=== PATIENT | female | born 1980 | race Caucasian/White ===

== ENCOUNTER 2017-05-15 16:40 | Emergency (ER) | payer OTHER ==
[2017-05-15 17:03] VITALS: BP 130/84
[2017-05-15] MEDS ORDERED: Ibuprofen TAB* 400 MG PO ONE (17:41)
--- NOTE | 2017-05-15 17:46 | UC ---
Lower Extremity/Ankle HPI - HPI Summary HPI Summary: 37 y/o female presents to the urgent care c/o twisting her LF ankle 1300pm while playing with her son. Pt placed ice after it happened, But has not taking anything to alleviate pain. Pain now is 6/10 at rest and 8/10 with movement. Pt reports she was able to ambulate with difficulty due to pain. Pt denies numbness, fever, SOB, chest pain, N/V/D. Pt has not other complains. - History of Current Complaint Chief Complaint: UCLowerExtremity Stated Complaint: ANKLE INJURY Time Seen by Provider: 05/15/17 17:27 Hx Obtained From: Patient Hx Last Menstrual Period: 05/01/17 ?: No Onset/Duration: Sudden Onset, Lasting Hours, Still Present Severity Initially: Moderate Severity Currently: Moderate Pain Intensity: 8 - w/ movement Pain Scale Used: 0-10 Numeric Aggravating Factor(s): Ambulation Alleviating Factor(s): Rest Able to Bear Weight: Yes - Risk Factors Gout Risk Factors: Negative DVT Risk Factors: Negative Septic Arthritis Risk Factor: Negative - Allergies/Home Medications Allergies/Adverse Reactions: Allergies Allergy/AdvReac Type Severity Reaction Status Date / Time No Known Allergies Allergy Verified 07/28/15 03:20 Home Medications: Home Medications metFORMIN* [Glucophage 500 MG TAB *] 500 mg PO BID 05/15/17 [History Confirmed 05/15/17] PMH/Surg Hx/FS Hx/Imm Hx Previously Healthy: Yes Other Endocrine History: Polycystic Ovarian syndrome - Surgical History Surgical History: Yes Surgery Procedure, Year, and Place: choley, - Family History Known Family History: Positive: Cardiac Disease, Hypertension - Social History Occupation: Employed Full-time Lives: With Family Alcohol Use: None Substance Use Type: None Smoking Status (MU): Never Smoked Tobacco - Immunization History Most Recent Influenza Vaccination: unknown Most Recent Tetanus Shot: 06/19/15 Most Recent Pneumonia Vaccination: unknown Review of Systems Constitutional: Negative Skin: Negative Eyes: Negative ENT: Negative Respiratory: Negative Cardiovascular: Negative Gastrointestinal: Negative Genitourinary: Negative Motor: Negative Neurovascular: Negative Musculoskeletal: Other: - LF knee pain s/p twisting ankle while playing Neurological: Negative Psychological: Negative All Other Systems Reviewed And Are Negative: Yes Physical Exam Triage Information Reviewed: Yes Appearance: Well-Appearing, No Pain Distress, Well-Nourished, Obese Vital Signs: Initial Vital Signs Temp 98.4 F 05/15/17 16:55 Pulse 94 05/15/17 16:55 Resp 18 05/15/17 16:55 BP 130/84 05/15/17 16:55 Pulse Ox 99 05/15/17 16:55 Vital Signs Reviewed: Yes Eye Exam: Normal Eyes: Positive: Conjunctiva Clear - PRRLA, EOMI, fundi grossly normal ENT Exam: Normal ENT: Positive: Normal ENT inspection, Hearing grossly normal, Pharynx normal, TMs normal Dental Exam: Normal Neck exam: Normal Neck: Positive: Supple, Nontender, No Lymphadenopathy Respiratory Exam: Normal Respiratory: Positive: Chest non-tender, Lungs clear, Normal breath sounds Cardiovascular Exam: Normal Cardiovascular: Positive: RRR, No Murmur, Pulses Normal, Brisk Capillary Refill Abdominal Exam: Normal Abdomen Description: Positive: Nontender, No Organomegaly, Soft. Negative: CVA Tenderness (R), CVA Tenderness (L) Bowel Sounds: Positive: Present Musculoskeletal: Positive: ROM Limited @ - LF ankle with mild swelling at he lateral malleolus, Decrease ROM due to pain. No erythema observed. Positve capillary refill, sensation, pulses intact. Pt able to ambulate limited by pain. Lower Extremity Course/Dx - Course Course Of Treatment: 37 y/o female presents to the urgent care c/o twisting her LF ankle 1300pm while playing with her son. Pt placed ice after it happened, But has not taking anything to alleviate pain. Pain now is 6/10 at rest and 8/ 10 with movement. Pt reports she was able to ambulate with difficulty due to pain. Pt denies numbness, fever, SOB, chest pain, N/V/D. Pt has not other complains. Hx obtained. PE abnormal findings:LF ankle with mild swelling at he lateral malleolus, Decrease ROM due to pain. No erythema observed. Positve capillary refill, sensation, pulses intact. Pt able to ambulate limited by pain. Left ankle X-ray 3 views ordered: results:No fracture noted. Pt's ankle immobilized with gel splin, monico bandage. Educated in how to use the crutches. Advised RICE, and f/u with Orthopedic Dr barnhart in 1 week if symptoms are not improving. Pt neurovascular intact. Pt understood and agreed. Left the clinic ambulating with the help ot crutches. - Differential Dx/Diagnosis Differential Diagnosis/HQI/PQRI: Dislocation, Fracture (Closed), Sprain, Strain , Tendonitis Provider Diagnoses: 1- Left ankle sprain Discharge - Discharge Plan Condition: Stable Disposition: HOME Prescriptions: Ibuprofen TAB* [Motrin TAB* 800 MG] 800 mg PO Q6H #30 tab Patient Education Materials: Ankle Sprain (ED), Crutch Instructions (ED) Referrals: Franklin Ramirez MD [Primary Care Provider] - 1 Week Manohar Barnhart MD [Medical Doctor] - 1 Week Additional Instructions: Please take Ibuprofen after meals to alleviate pain and swelling. Apply ice, Rest and elevate your LF leg. Do not put weight on your leg until symptoms resolve. F/u with your PCP or Orthopedic if symptoms do not improve or worsen.
--- NOTE | 2017-05-15 18:34 | RAD ---
Indication: Left ankle pain. 3 views of the left ankle demonstrates no fracture. Ankle mortise is intact. IMPRESSION: No fracture of left ankle is noted.
== END 2017-05-15 19:06 | disposition home or self-care (01) ==
LOC: UCEAST 16:40
DX: S93.402A Sprain of unspecified ligament of left ankle, initial encounter (principal); X50.0XXA Overexertion from strenuous movement or load, initial encounter; Y93.89 Activity, other specified; Y92.239 Unspecified place in hospital as the place of occurrence of the external cause; Y99.9 Unspecified external cause status
CPT/HCPCS: 84702; 99214; A9270-GY; G0463

== ENCOUNTER 2018-09-06 04:20 | Inpatient (IN) | payer OTHER ==
[2018-09-06] MEDS ORDERED: Lidocaine 1%* 5 ML VIAL ONE (04:44)
--- NOTE | 2018-09-06 05:33 | HP ---
General Information - Reason for Visit Spontaneous ruptured of membranes at 330 am along with contractions. 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 Past Medical History Comment: PCOS Hgb C trait Hypercholesterolemia Pertinent Past Surgical History: See Records Past Surgical History Comment: 2015 Section 2017 Laparoscopic cholecystectomy 2006 Lasik Pertinent Family History: See Records - Antepartal Records Antepartal Records: Reviewed, Complicated by: - Gestational diabetes A1 Review of Systems Constitutional: Uncomfortable CV Complaint: No Respiratory: Shortness of Breath: No Gastrointestinal: No Nausea/Vomiting, Normal Bowel Movement Genitourinary: Leaking Fluid, No Dysuria, No Bleeding Musculoskeletal: No Complaint, No Epigastric Pain Neurological: No Headache, No Visual Changes Movement: Normal Exam Allergies/Adverse Reactions: Allergies No Known Allergies Allergy (Verified 09/06/18 04:44) Temp 97.2 P90 RR 20 BP 149/85 POx 98 % RA Lab Values - Entire Visit: Laboratory Tests 09/06/18 04:50 Vag Amniotic Fld Detect Positive - Measurements Height: 5 ft 3 in Weight: 210 lb Weight in lbs: [phone] Body Mass Index (BMI): 37.2 Pre- Weight: 207 lb Weight Gained This : 3 lbs and 0 ozs - Exam Breast: Breast Exam Deferred CVA: No CVA Tenderness Extremities: No Edema Heart: Normal Rhythm/Heart Sounds HEENT: No Significant Findings Lungs: Clear Bilaterally Rectal: Rectal Exam Deferred Reflexes: DTR 2+ Thyroid: No Thyromegaly - Abdominal Exam Abdomen Exam: Non-Tender, Fundal Height Consistent with Dates - Ultrasound/Biophysical Profile Biophysical Profile: Normal Reactive NST Targeted Exam Findings See L&D Outpatient Visit Provider Note for Findings: N/A Cervical Exam: 5cm Effacement: 90% Station: 0 Presenting Part: Vertex Membrane Status: SROM Amniotic Fluid Evaluation: Positive ROM Plus Bleeding/Discharge: None EFM Findings - External Monitor Findings Baseline Heart Rate: 130 External Monitor Findings: Accelerations Present, No Pattern of Variable or Late Decelerations Contractions: Regular, Strong, 45-90 Seconds Contraction Frequency: q 2-3 mins Assessment/Plan - Assessment 38 y/o with at 38 6/7 weeks, SROM in labor. Prior section and desires . - Obstetrical Risk Factors Obstetrical Risk Factors: Gestational Diabetes, Previous C/Section in Labor - Plan Plan: IV Hydration, Admit - Anticipate Vaginal Delivery - Date/Time of Admission Date of Admission: 09/06/18 Time of Admission: 15:00
[2018-09-06 05:38] LABS: ABS Basophils 0.1 10^3/ul (0-0.2); ABS Eosinophils 0.1 10^3/ul (0-0.6); ABS Lymphocytes 2.9 10^3/ul (1.0-4.8); ABS Monocytes 0.7 10^3/ul (0-0.8); ABS Neutrophils 6.9 10^3/ul (1.5-7.7); ABS Nucleated RBC 0 10^3/ul; Hematocrit 45 % (35-47); Hemoglobin 16.1 g/dl (12.0-16.0); Lymphocyte % 27.3 % (25-47); Mean Corpuscular HGB Conc 35 g/dl (31-36); Mean Corpuscular Hemoglobin 30 pg (27-31); Mean Corpuscular Volume 84 fL (80-97); Mean Platelet Volume 9.8 fL (7.4-10.4); Nucleated Red Blood Cells % 0.3; Platelet Count 159 10^3/ul (150-450); Red Blood Count 5.43 10^6/ul (4.00-5.40); Red Cell Distribution Width 14 % (10.5-15); White Blood Count 10.8 10^3/ul (3.5-10.8)
[2018-09-06] MEDS ORDERED: OBEPIDURAL* 250 ML EPIDURAL ONE (05:51)
[2018-09-06] MEDS ORDERED: Famotidine TAB* 20 MG PO PRN (06:46)
[2018-09-06] MEDS ORDERED: Sodium Citrate/Citric Acid* 15 ML UDC PO PRN (06:46)
[2018-09-06] MEDS ORDERED: Phenylephrine IV* 40 MCG/ML 10 ML SYRINGE IV PUSH PRN (06:46)
[2018-09-06] MEDS ORDERED: OBEPIDURAL* 250 ML EPIDURAL SCH (07:00)
[2018-09-06] MEDS ORDERED: ceFOXitin 2 GM IVPREMIX* 2 GM/50 ML BAG ONE (11:32)
[2018-09-06] MEDS ORDERED: Chloroprocaine 3%* 20 ML VIAL ONE ×2 (12:45→14:01)
[2018-09-06] MEDS ORDERED: Dexamethasone IV* 4 MG/ML 1 ML (4 MG) ONE (12:49)
[2018-09-06] MEDS ORDERED: Ondansetron INJ* 2 MG/ML VIAL ONE (12:49)
[2018-09-06] MEDS ORDERED: OXYTOCIN* 10 UNITS/ML 1 ML VIAL ONE (12:49)
[2018-09-06] MEDS ORDERED: Morphine PF AMP (0.5MG/ML)* 5 MG/10 ML AMP ONE (13:30)
[2018-09-06] MEDS ORDERED: fentaNYL* 50 MCG/ML 2 ML VIAL (100 MCG VIAL) ONE (14:07)
[2018-09-06] MEDS ORDERED: Acetaminophen TAB* 325 MG PO PRN (14:49)
[2018-09-06] MEDS ORDERED: Witch Hazel PAD* JAR TOPICAL PRN (14:49)
[2018-09-06] MEDS ORDERED: Ibuprofen TAB* 600 MG PO PRN (14:49)
[2018-09-06] MEDS ORDERED: Acetaminophen IV 1GM/100ML * 1,000 MG/100 ML VIAL IVPB ONE (15:14)
[2018-09-06] MEDS ORDERED: DiMENhydriNATE IV* 50 MG/ML VIAL IV PUSH PRN ×2 (15:14→15:16)
[2018-09-06] MEDS ORDERED: oxyCODONE TAB* 5 MG TAB PO PRN ×2 (15:14→15:16)
[2018-09-06] MEDS ORDERED: Naloxone* 0.4 MG/ML 1 ML VIAL IV PRN ×2 (15:14→15:16)
[2018-09-06] MEDS ORDERED: Ondansetron INJ* 2 MG/ML VIAL IV PRN (15:16)
[2018-09-06] MEDS ORDERED: Nalbuphine* 10 MG/ML 1 ML VIAL IV PRN (15:16)
[2018-09-06] MEDS ORDERED: Ketorolac INJ* 30 MG/ML 1 ML VIAL ONE (15:21)
[2018-09-06] MEDS: fentaNYL* 50 MCG/ML 2 ML VIAL (100 MCG VIAL) IV PRN ×2 (15:41→15:53)
[2018-09-06] MEDS ORDERED: Acetaminophen TAB* 325 MG PO SCH (16:00)
[2018-09-06] MEDS ORDERED: Ketorolac INJ* 30 MG/ML 1 ML VIAL IV ONE (16:00)
[2018-09-06] MEDS: Simethicone TAB* 80 MG TAB.CHEW PO SCH ×2 (18:34→23:07)
[2018-09-06] MEDS: Docusate CAP* 100 MG PO SCH (23:07)
[2018-09-06] MEDS: Ketorolac INJ* 30 MG/ML 1 ML VIAL IV SCH (23:07)
[2018-09-07] MEDS: Acetaminophen TAB* 325 MG PO SCH ×2 (02:30→08:51)
[2018-09-07] MEDS: Ketorolac INJ* 30 MG/ML 1 ML VIAL IV SCH ×2 (04:35→10:34)
[2018-09-07 07:06] LABS: ABS Basophils 0.1 10^3/ul (0-0.2); ABS Eosinophils 0 10^3/ul (0-0.6); ABS Lymphocytes 2.7 10^3/ul (1.0-4.8); ABS Monocytes 1.2 10^3/ul (0-0.8); ABS Neutrophils 11.7 10^3/ul (1.5-7.7); ABS Nucleated RBC 0 10^3/ul; Eosinophil % 0.3 % (0-6); Hematocrit 36 % (35-47); Hemoglobin 12.8 g/dl (12.0-16.0); Lymphocyte % 17.2 % (25-47); Mean Corpuscular HGB Conc 35 g/dl (31-36); Mean Corpuscular Hemoglobin 29 pg (27-31); Mean Corpuscular Volume 83 fL (80-97); Mean Platelet Volume 9.3 fL (7.4-10.4); Nucleated Red Blood Cells % 0; Platelet Count 120 10^3/ul (150-450); Red Blood Count 4.39 10^6/ul (4.00-5.40); Red Cell Distribution Width 14 % (10.5-15); White Blood Count 15.8 10^3/ul (3.5-10.8)
[2018-09-07] MEDS: Simethicone TAB* 80 MG TAB.CHEW PO SCH ×4 (08:51→21:35)
[2018-09-07] MEDS: Docusate CAP* 100 MG PO SCH ×3 (08:51→21:35)
--- NOTE | 2018-09-07 08:52 | OP ---
DATE OF OPERATION: 09/06/18 - ROOM #117 DATE OF : 84 SURGEON: Dominik Nelson MD OPTICS TEST TECHNICIAN: Sobia Titus CNM ANESTHESIOLOGIST: Dr. Suero. ANESTHESIA: Epidural. PRE-OP DIAGNOSIS: 38 plus 6 weeks' gestation with history of previous section with arrest of dilation during trial of labor. POST-OP DIAGNOSES: 38 plus 6 weeks' gestation with history of previous section with arrest of dilation during trial of labor and extensive pelvic adhesive disease. OPERATIVE PROCEDURE: Repeat low transverse section and lysis of adhesions. INDICATIONS: This patient is a 38-year-old 2, para 1, who had a history of prior section for arrest of dilation at about 8 cm. The patient presented early this morning with rupture of membranes and active labor. She progressed well in labor to about 7 cm; however, at this point, she did not have any further dilation despite regular contractions. The patient desired to proceed with a section at that point. She was extensively counseled and consent was signed. ESTIMATED BLOOD LOSS: 800 cc. URINE OUTPUT: 500 cc. IV FLUIDS: 1500 cc lactated Ringer's. MATERIAL TO LAB: Cord blood. FINDINGS: Normal appearing uterus, fallopian tubes, and ovaries. There were extensive adhesions of the bladder anteriorly as well as the omentum to the anterior abdominal wall, which required extensive dissection. Delivery was productive of female weighing 6 pounds 12 ounces with Apgars of 9 and 9. Time of delivery was 1341. COMPLICATIONS: None. DESCRIPTION OF PROCEDURE: The risks, benefits, and alternatives were described to the patient, and informed consent was obtained. The patient was taken to the operating room with IV running, where epidural anesthesia was induced and found to be adequate. The patient was prepped and draped in normal sterile fashion in the dorsal supine position with a leftward tilt. A Pfannenstiel skin incision was made with a scalpel through the patient's previous incision. This was carried down to the underlying fascia using the scalpel. The fascia was scored in the midline, and the incision was extended using Reilly scissors. The fascia was dissected off the underlying rectus muscles using blunt and sharp dissection. The rectus muscles were in the midline using dissection with a Naila clamp. The peritoneum was then entered bluntly. A bladder blade was placed. A bladder flap was created sharply using Metzenbaum scissors. A low transverse uterine incision was then made with the scalpel. This was carried down to the amniotic membranes. The membranes were then ruptured, productive of clear fluid. The uterine incision was extended using blunt traction. The head was elevated to the level of the incision, and, with fundal pressure, the head delivered without difficulty. The shoulders then were also both delivered and the body followed. The had excellent tone and cried immediately on delivery. The cord was doubly clamped and cut. The infant was then handed to the awaiting skate maker. Cord blood was collected. The placenta was delivered with manual extraction. The uterus was then exteriorized and cleared of all clots and debris. The uterine incision was then reapproximated using 0 Polysorb in a running-locked fashion. A second layer of imbricating 0 Polysorb sutures was then also placed for good hemostasis. The posterior cul-de-sac was irrigated with saline. The uterus was then returned to the abdomen. The incision was reinspected and still noted to be hemostatic. The peritoneum was closed with 2-0 chromic in a running fashion. The fascia was closed with 0 Polysorb in a running fashion. The subcutaneous tissues were copiously irrigated and made hemostatic using the Bovie. The subcutaneous tissues were then reapproximated using 2-0 chromic in interrupted sutures. The skin was then closed with . A sterile bandage was then placed over the incision. The patient tolerated the procedure well. Sponge, lap, and needle counts were correct x2. [id number]/[facility] #: [id number] MTDD
[2018-09-07] MEDS: Ferrous Gluconate TAB* 324 MG TAB PO SCH ×2 (09:02→21:35)
[2018-09-07] MEDS: oxyCODONE/Acetamin 5/325 MG* TAB PO PRN ×3 (12:57→21:35)
[2018-09-07] MEDS: Ibuprofen TAB* 600 MG PO PRN ×2 (16:51→23:56)
[2018-09-08] MEDS: oxyCODONE/Acetamin 5/325 MG* TAB PO PRN ×4 (01:50→14:16)
[2018-09-08] MEDS: Ibuprofen TAB* 600 MG PO PRN ×2 (06:07→12:27)
[2018-09-08 08:27] VITALS: BP 125/63
[2018-09-08] MEDS: Docusate CAP* 100 MG PO SCH ×2 (08:52→14:16)
[2018-09-08] MEDS: Simethicone TAB* 80 MG TAB.CHEW PO SCH ×2 (08:54→12:26)
== END 2018-09-08 14:43 | disposition home or self-care (01) | DRG 788 ==
LOC: MCHOBOUT 04:20 → MCHOB 05:21
PROVIDERS: ADMIT Obstetrics & Gynecology; ATTEND Obstetrics & Gynecology
PROC: 0DNW0ZZ Release Peritoneum, Open Approach (ICD-10-PCS; 2018-09-06)
PROC: 4A1HX4Z Monitoring of Products of Conception, Cardiac Electrical Activity, External Approach (ICD-10-PCS; 2018-09-06)
PROC: 10D00Z1 Extraction of Products of Conception, Low, Open Approach (ICD-10-PCS; principal; 2018-09-06 12:55)
DX: O34.211 Maternal care for low transverse scar from previous cesarean delivery (principal); O99.284 Endocrine, nutritional and metabolic diseases complicating childbirth; E28.2 Polycystic ovarian syndrome; O24.429 Gestational diabetes mellitus in childbirth, unspecified control; D58.2 Other hemoglobinopathies; O99.02 Anemia complicating childbirth; O62.1 Secondary uterine inertia; N73.6 Female pelvic peritoneal adhesions (postinfective); O99.89 Other specified diseases and conditions complicating pregnancy, childbirth and the puerperium; Z3A.38 38 weeks gestation of pregnancy; Z37.0 Single live birth
CPT/HCPCS: 36415; 84112; 85025; 86850; 86900; 86901; A9270-GY; J0694; J1100; J1885; J2400; J2405; J2590; J3010

== ENCOUNTER 2019-09-03 21:05 | Emergency (ER) | payer OTHER, BC ==
[2019-09-03 21:32] VITALS: BP 139/87
[2019-09-03] MEDS ORDERED: Albuterol 2.5 MG/3 ML NEB.SOL* (0.083%) INH ONE (21:52)
[2019-09-03] MEDS ORDERED: Ipratropium 0.5MG/2.5ML NEB* 0.5 MG/2.5 ML NEB.SOLN INH ONE (21:52)
--- NOTE | 2019-09-03 21:57 | UC ---
Respiratory Complaint HPI - HPI Summary HPI Summary: 39 yo female with the onset of chest tightness/wheezing and cough about 9 AM no fever no URI symptoms non smoker no hx asthma/bronchitis or pneumonia - History of Current Complaint Chief Complaint: UCRespiratory Stated Complaint: SOB Time Seen by Provider: 09/03/19 21:44 Hx Obtained From: Patient Hx Last Menstrual Period: 05/01/17 Onset/Duration: Gradual Onset, Lasting Hours Timing: Constant Severity Initially: Mild Severity Currently: Moderate Pain Intensity: 7 Pain Scale Used: 0-10 Numeric Character: Cough: Nonproductive Aggravating Factors: Nothing Alleviating Factors: Nothing Associated Signs And Symptoms: Positive: Dyspnea, Wheezing - Allergies/Home Medications Allergies/Adverse Reactions: Allergies Allergy/AdvReac Type Severity Reaction Status Date / Time No Known Allergies Allergy Verified 09/03/19 21:32 Home Medications: Home Medications Calcium Carbonate [Tums] 200 mg PO PRN 09/03/19 [History] PMH/Surg Hx/FS Hx/Imm Hx Previously Healthy: Yes - Surgical History Surgical History: Yes Surgery Procedure, Year, and Place: choley, - Family History Known Family History: Positive: Cardiac Disease, Hypertension - Social History Alcohol Use: None Substance Use Type: None Smoking Status (MU): Never Smoked Tobacco - Immunization History Most Recent Influenza Vaccination: 07/2018 Most Recent Tetanus Shot: 06/19/15 Most Recent Pneumonia Vaccination: unknown Review of Systems All Other Systems Reviewed And Are Negative: Yes Constitutional: Positive: Negative Skin: Positive: Negative Eyes: Positive: Negative ENT: Positive: Negative Respiratory: Positive: Shortness Of Breath, Cough Cardiovascular: Positive: Chest Pain Gastrointestinal: Positive: Negative Genitourinary: Positive: Negative Motor: Positive: Negative Neurovascular: Positive: Negative Musculoskeletal: Positive: Negative Neurological: Positive: Negative Psychological: Positive: Negative Physical Exam Triage Information Reviewed: Yes Appearance: Well-Appearing, No Pain Distress, Well-Nourished Vital Signs: Initial Vital Signs Temp 98.0 F 09/03/19 21:29 Pulse 99 09/03/19 21:29 Resp 18 09/03/19 21:29 BP 139/87 09/03/19 21:29 Pulse Ox 98 09/03/19 21:29 Vital Signs Reviewed: Yes Eyes: Positive: Conjunctiva Clear ENT: Positive: Hearing grossly normal, Uvula midline. Negative: Nasal congestion, Nasal drainage, Tonsillar swelling, Tonsillar exudate, Hoarse voice Dental Exam: Normal Neck: Positive: Supple, Nontender, No Lymphadenopathy Respiratory: Positive: No respiratory distress, No accessory muscle use, Wheezing - with forced expiration, Other: - bronchospastic cough Cardiovascular: Positive: RRR Musculoskeletal: Positive: ROM Intact, No Edema Neurological: Positive: Alert Psychological Exam: Normal Skin Exam: Normal Diagnostics - Radiology No standard instances Radiology Interpretation Completed By: ED Physician Summary of Radiographic Findings: NAD Re-Evaluation - Re-Evaluation First Eval Re-Evaluation Time: 22:35 Change: Improved - better air movement Respiratory Course/Dx - Differential Dx/Diagnosis Provider Diagnosis: Acute bronchospasm Discharge ED - Sign-Out/Discharge Documenting (check all that apply): Patient Departure All imaging exams completed and their final reports reviewed: No Studies - Discharge Plan Condition: Stable Disposition: HOME Prescriptions: predniSONE TAB* [Deltasone 20 MG TAB*] 40 mg PO DAILY #8 tab Patient Education Materials: Bronchospasm (ED), How to Use a Metered-Dose Inhaler and a Spacer (ED) Referrals: Franklin Ramirez MD [Primary Care Provider] - 4 Days - Billing Disposition and Condition Condition: STABLE Disposition: Home
[2019-09-03] MEDS ORDERED: Albuterol HFA INHALER* 8 gm MDI INH ONE (22:35)
[2019-09-03] MEDS ORDERED: predniSONE TAB* 20 MG PO ONE (22:35)
== END 2019-09-03 22:45 | disposition home or self-care (01) ==
LOC: UCEAST 21:05
DX: J98.01 Acute bronchospasm (principal)
CPT/HCPCS: 71046; 99213; A9270-GY; G0463; J7512

== ENCOUNTER 2019-09-20 09:17 | Emergency (ER) | payer BC, OTHER ==
[2019-09-20 09:26] VITALS: BP 127/81
--- NOTE | 2019-09-20 10:16 | UC ---
Throat Pain/Nasal Ady HPI - HPI Summary HPI Summary: Patient is a 39-year-old female with a 2 day history of sore throat and mild fever. She has swollen glands. She denies any severe headache or vomiting. She denies any chest pain or shortness of breath. - History of Current Complaint Chief Complaint: UCGeneralIllness Stated Complaint: SORE THROAT EAR PAIN Hx Obtained From: Patient Hx Last Menstrual Period: 05/01/17 Onset/Duration: Gradual Onset, Lasting Days Severity: Severe Pain Intensity: 9 Pain Scale Used: 0-10 Numeric Cough: None Associated Signs & Symptoms: Positive: Fever - Epiglottits Risk Factors Epiglottis Risk Factors: Negative - Allergies/Home Medications Allergies/Adverse Reactions: Allergies Allergy/AdvReac Type Severity Reaction Status Date / Time No Known Allergies Allergy Verified 09/20/19 09:26 PMH/Surg Hx/FS Hx/Imm Hx Previously Healthy: Yes - Surgical History Surgical History: Yes Surgery Procedure, Year, and Place: choley, - Family History Known Family History: Positive: Cardiac Disease, Hypertension - Social History Alcohol Use: None Substance Use Type: None Smoking Status (MU): Never Smoked Tobacco - Immunization History Most Recent Influenza Vaccination: 07/2018 Most Recent Tetanus Shot: 06/19/15 Most Recent Pneumonia Vaccination: unknown Review of Systems All Other Systems Reviewed And Are Negative: Yes Constitutional: Positive: Fever Skin: Positive: Negative Eyes: Positive: Negative ENT: Positive: Sore Throat Respiratory: Positive: Negative Cardiovascular: Positive: Negative Gastrointestinal: Positive: Negative Genitourinary: Positive: Negative Motor: Positive: Negative Neurovascular: Positive: Negative Musculoskeletal: Positive: Negative Neurological: Positive: Negative Psychological: Positive: Negative Physical Exam Triage Information Reviewed: Yes Appearance: Well-Appearing, No Pain Distress, Well-Nourished Vital Signs: Initial Vital Signs Temp 98.4 F 09/20/19 09:24 Pulse 102 09/20/19 09:24 Resp 22 09/20/19 09:24 BP 127/81 09/20/19 09:24 Pulse Ox 100 09/20/19 09:24 Vital Signs Reviewed: Yes Eyes: Positive: Conjunctiva Clear ENT: Positive: Hearing grossly normal, Pharyngeal erythema, TMs normal, Tonsillar swelling, Tonsillar exudate, Uvula midline. Negative: Nasal congestion, Nasal drainage, Trismus, Muffled voice, Hoarse voice Neck: Positive: Supple, Nontender, Enlarged Nodes @ - ant cerv Respiratory: Positive: Lungs clear, Normal breath sounds, No respiratory distress Cardiovascular: Positive: RRR, No Murmur Diagnostics - Laboratory Lab Results: strep + Throat Pain/Nasal Course/Dx - Differential Dx/Diagnosis Provider Diagnosis: Strep throat Discharge ED - Sign-Out/Discharge Documenting (check all that apply): Patient Departure All imaging exams completed and their final reports reviewed: No Studies - Discharge Plan Condition: Stable Disposition: HOME Prescriptions: Amoxicillin PO (*) [Amoxicillin 875 MG (*)] 875 mg PO BID #20 tab Ibuprofen TAB* [Motrin TAB*] 600 mg PO QID PRN #40 tab PRN Reason: Pain Patient Education Materials: Strep Throat (ED) Forms: *Work Release Referrals: Franklin Ramirez MD [Primary Care Provider] - 4 Days (if not better) - Billing Disposition and Condition Condition: STABLE Disposition: Home
== END 2019-09-20 10:23 | disposition home or self-care (01) ==
LOC: UCEAST 09:17
DX: J02.0 Streptococcal pharyngitis (principal)
CPT/HCPCS: 87651; 99212; G0463

== ENCOUNTER 2019-10-09 14:23 | Emergency (ER) | payer BC ==
[2019-10-09 14:41] VITALS: BP 136/84
--- NOTE | 2019-10-09 15:20 | UC ---
Throat Pain/Nasal Ady HPI - HPI Summary HPI Summary: 39 yo female with sore throat x 2 days feverish recently rxed for strep with 10 days of amox - History of Current Complaint Chief Complaint: UCGeneralIllness Stated Complaint: SORE THROAT Time Seen by Provider: 10/09/19 15:13 Hx Obtained From: Patient Hx Last Menstrual Period: 09/28/19 Onset/Duration: Gradual Onset, Lasting Days Severity: Severe Pain Intensity: 9 Pain Scale Used: 0-10 Numeric Cough: None Associated Signs & Symptoms: Positive: Fever - Epiglottits Risk Factors Epiglottis Risk Factors: Negative - Allergies/Home Medications Allergies/Adverse Reactions: Allergies Allergy/AdvReac Type Severity Reaction Status Date / Time No Known Allergies Allergy Verified 10/09/19 14:41 PMH/Surg Hx/FS Hx/Imm Hx Previously Healthy: Yes - Surgical History Surgical History: Yes Surgery Procedure, Year, and Place: choley, - Family History Known Family History: Positive: Cardiac Disease, Hypertension - Social History Alcohol Use: None Substance Use Type: None Smoking Status (MU): Never Smoked Tobacco - Immunization History Most Recent Influenza Vaccination: 07/2018 Most Recent Tetanus Shot: 06/19/15 Most Recent Pneumonia Vaccination: unknown Review of Systems All Other Systems Reviewed And Are Negative: Yes Constitutional: Positive: Fever - dariana, Chills Skin: Positive: Negative Eyes: Positive: Negative ENT: Positive: Sore Throat Respiratory: Positive: Negative Cardiovascular: Positive: Negative Gastrointestinal: Positive: Negative Genitourinary: Positive: Negative Motor: Positive: Negative Neurovascular: Positive: Negative Musculoskeletal: Positive: Negative Neurological: Positive: Negative Psychological: Positive: Negative Physical Exam Triage Information Reviewed: Yes Appearance: Well-Appearing, No Pain Distress, Well-Nourished Vital Signs: Initial Vital Signs Temp 98.9 F 10/09/19 14:38 Pulse 111 10/09/19 14:38 Resp 18 10/09/19 14:38 BP 136/84 10/09/19 14:38 Pulse Ox 99 10/09/19 14:38 Vital Signs Reviewed: Yes Eyes: Positive: Conjunctiva Clear ENT: Positive: Hearing grossly normal, Pharyngeal erythema, Tonsillar swelling, Uvula midline Dental Exam: Normal Neck: Positive: Supple, Nontender, Enlarged Nodes @ - ant cerc Respiratory: Positive: Lungs clear, Normal breath sounds, No respiratory distress, No accessory muscle use Cardiovascular: Positive: RRR, No Murmur Abdomen Description: Positive: Nontender, No Organomegaly, Soft. Negative: CVA Tenderness (R), CVA Tenderness (L) Bowel Sounds: Positive: Present Musculoskeletal: Positive: ROM Intact, No Edema Neurological: Positive: Alert Psychological Exam: Normal Skin Exam: Normal Diagnostics - Laboratory Lab Results: strep + Throat Pain/Nasal Course/Dx - Differential Dx/Diagnosis Provider Diagnosis: Strep throat Discharge ED - Sign-Out/Discharge Documenting (check all that apply): Patient Departure All imaging exams completed and their final reports reviewed: No Studies - Discharge Plan Condition: Stable Disposition: HOME Prescriptions: Cephalexin CAP* [Keflex CAP*] 500 mg PO BID #20 cap Patient Education Materials: Strep Throat (ED) Forms: *Work Release Referrals: Franklin Ramirez MD [Primary Care Provider] - If Needed - Billing Disposition and Condition Condition: STABLE Disposition: Home
== END 2019-10-09 15:42 | disposition home or self-care (01) ==
LOC: UCEAST 14:23
DX: J02.0 Streptococcal pharyngitis (principal)
CPT/HCPCS: 87651; 99212; G0463